=== PATIENT | female | born 2000 | race Caucasian/White ===

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

== ENCOUNTER 2019-10-15 11:09 | Inpatient (IN) | payer SELFPAY ==
[2019-10-15] MEDS ORDERED: Misoprostol 25 MCG (1/4 of 100 MCG) Tab VAG PRN (19:50)
[2019-10-15] MEDS ORDERED: Methylergonovine 0.2 MG/1 ML Amp IM PRN (19:50)
[2019-10-15] MEDS ORDERED: Sodium Chloride 0.9% 10 ML Syringe FLUSH PRN (19:50)
[2019-10-15] MEDS ORDERED: Carboprost Tromethamine 250 MCG/1 ML Amp IM PRN (19:50)
[2019-10-15] MEDS ORDERED: Butorphanol 1 MG/ML SDV IVPUSH PRN (19:50)
[2019-10-15] MEDS ORDERED: Misoprostol 200 MCG Tab PO PRN (19:50)
[2019-10-15] MEDS ORDERED: Lidocaine 1% 50 ML MDV INJECT PRN (19:50)
[2019-10-15] MEDS ORDERED: Water For Irrigation,Sterile 1,000 ML Container IRR PRN (19:50)
[2019-10-15] MEDS ORDERED: Sodium Chloride 0.9% 2.5 ML Syringe FLUSH PRN (19:50)
[2019-10-15] MEDS ORDERED: Terbutaline 1 MG/ML SDV SUBCUT PRN (19:50)
[2019-10-15] MEDS ORDERED: Tranexamic Acid 1,000 MG in Sodium Chloride 0.9% 100 ML IV PRN (19:50)
[2019-10-15] MEDS ORDERED: Ondansetron 4 MG/2 ML SDV IVPUSH PRN (19:50)
[2019-10-15] MEDS ORDERED: Sodium Chloride 0.9% 10 ML SDV IV PRN (19:50)
[2019-10-15] MEDS ORDERED: Nalbuphine 10 MG/1 ML Vial IVPUSH PRN (19:50)
[2019-10-15] MEDS ORDERED: Oxytocin/0.9 % Sodium Chloride 30 UNIT/500 ML BAG IV SCH ×2 (20:00)
[2019-10-15] MEDS: Lactated Ringers 1,000 ML IV SCH (21:25)
[2019-10-16] MEDS: Misoprostol 25 MCG (1/4 of 100 MCG) Tab VAG PRN ×3 (03:03→15:04)
[2019-10-16] MEDS: Lactated Ringers 1,000 ML IV SCH (23:00)
[2019-10-16] MEDS ORDERED: fentaNYL 100 MCG/2 ML SDV ONE (23:14)
[2019-10-16] MEDS ORDERED: Ropivacaine HCl/PF 100 ML ONE (23:14)
--- NOTE | 2019-10-16 23:35 | PCM.PREANE ---
Preanesthetic Assessment - Anesthesia/Transfusion/Family Hx Anesthesia History: Prior Anesthesia Without Reaction Family History of Anesthesia Reaction: No Transfusion History: No Prior Transfusion(s) Intubation History: Unknown - Physical Assessment NPO Status Date: 10/16/19 NPO Status Time: 20:00 Height: 1.63 m Weight: 114.305 kg ASA Class: 1 - Lab Values: Laboratory Last Values WBC 8.09 K/uL (4.0-11.0) 10/15/19 20:20 RBC 4.60 M/uL (4.30-5.90) 10/15/19 20:20 Hgb 11.8 g/dL (12.0-16.0) L 10/15/19 20:20 Hct 37.7 % (36.0-46.0) 10/15/19 20:20 MCV 82.0 fL (80.0-98.0) 10/15/19 20:20 MCH 25.7 pg (27.0-32.0) L 10/15/19 20:20 MCHC 31.3 g/dL (31.0-37.0) 10/15/19 20:20 RDW Std Deviation 69.0 fl (28.0-62.0) H 10/15/19 20:20 RDW Coeff of Sobeida 24 % (11.0-15.0) H 10/15/19 20:20 Plt Count 232 K/uL (150-400) 10/15/19 20:20 MPV 9.70 fL (7.40-12.00) 10/15/19 20:20 Nucleated RBC % 0.0 /100WBC 10/15/19 20:20 Nucleated RBCs # 0 K/uL 10/15/19 20:20 Blood Type O POSITIVE 10/15/19 20:20 Antibody Screen NEGATIVE 10/15/19 20:20 - Allergies Allergies/Adverse Reactions: Allergies Allergy/AdvReac Type Severity Reaction Status Date / Time bismuth subsalicylate Allergy Vomiting Verified 08/15/19 00:42 [From Pepto-Bismol] azithromycin [From Zithromax] AdvReac Mild Vomiting Verified 08/15/19 00:42 - Acknowledgements Anesthesia Type Planned: Epidural Pt an Appropriate Candidate for the Planned Anesthesia: Yes Alternatives and Risks of Anesthesia Discussed w Pt/Guardian: Yes Pt/Guardian Understands and Agrees with Anesthesia Plan: Yes PreAnesthesia Questionnaire - Past Health History Medical/Surgical History: Denies Medical/Surgical History HEENT History: Reports: None Cardiovascular History: Reports: None Respiratory History: Reports: None Gastrointestinal History: Reports: None Genitourinary History: Reports: None 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 Musculoskeletal History: Reports: None Neurological History: Reports: None Psychiatric History: Reports: Anxiety Endocrine/Metabolic History: Reports: None Hematologic History: Reports: None Oncologic (Cancer) History: Reports: None Dermatologic History: Reports: None - Infectious Disease History Infectious Disease History: Reports: None - Past Surgical History HEENT Surgical History: Reports: Myringotomy w Tube(s) GI Surgical History: Reports: Appendectomy - SUBSTANCE USE Smoking Status *Q: Former Smoker Tobacco Use Within Last Twelve Months: Vaping Second Hand Smoke Exposure: No Recreational Drug Use History: No - HOME MEDS Home Medications: Home Meds Multivitamin [Multi-Day Vitamins] 1 tab PO DAILY 07/01/18 [History] - CURRENT (IN HOUSE) MEDS Current Meds: Current Medications Butorphanol Tartrate (Stadol) 1 mg IVPUSH Q1H PRN PRN Reason: Pain Last Admin: 10/16/19 22:16 Dose: 1 mg Carboprost Tromethamine (Hemabate Ds) 250 mcg IM ASDIRECTED PRN PRN Reason: Post Hemorrhage Lactated Ringer's (Ringers, Lactated) 1,000 mls @ 150 mls/hr IV ASDIRECTED BRANDON Last Admin: 10/15/19 21:25 Dose: 999 mls/hr Oxytocin/Sodium Chloride (Oxytocin 30 Unit/500 Ml-Ns) 30 unit in 500 mls @ 2 mls/hr IV TITRATE BRANDON; Protocol Last Titration: 10/16/19 22:18 Dose: 4 munits/min, 4 mls/hr Oxytocin/Sodium Chloride (Oxytocin 30 Unit/500 Ml-Ns) 30 unit in 500 mls @ 555 mls/hr IV TITRATE BRANDON Tranexamic Acid 1,000 mg/ (Sodium Chloride) 110 mls @ 660 mls/hr IV ONETIME PRN PRN Reason: Bleeding Lidocaine HCl (Xylocaine 1%) 50 ml INJECT ONETIME PRN PRN Reason: Laceration repair Methylergonovine Maleate (Methergine) 0.2 mg IM ASDIRECTED PRN PRN Reason: Post Hemorrhage Misoprostol (Cytotec) 25 mcg VAG ONETIME PRN PRN Reason: Cervical Ripening Last Admin: 10/15/19 22:27 Dose: 25 mcg Misoprostol (Cytotec) 25 mcg VAG Q4H PRN PRN Reason: Cervical Ripening Last Admin: 10/16/19 15:04 Dose: 25 mcg Misoprostol (Cytotec) 200 mcg PO ONETIME PRN PRN Reason: Post Hemorrhage Nalbuphine HCl (Nubain) 10 mg IVPUSH Q1H PRN PRN Reason: Pain (severe 7-10) Ondansetron HCl (Zofran) 4 mg IVPUSH Q4H PRN PRN Reason: Nausea/Vomiting Sodium Chloride (Saline Flush) 10 ml FLUSH ASDIRECTED PRN PRN Reason: Keep Vein Open Sodium Chloride (Saline Flush) 2.5 ml FLUSH ASDIRECTED PRN PRN Reason: Keep Vein Open Sodium Chloride (Normal Saline) 10 ml IV ASDIRECTED PRN PRN Reason: IV Use Sterile Water (Sterile Water For Irrigation) 1,000 ml IRR ASDIRECTED PRN PRN Reason: delivery Terbutaline Sulfate (Brethine) 0.25 mg SUBCUT ASDIRECTED PRN PRN Reason: Tacysystole Discontinued Medications Fentanyl (Sublimaze) Confirm Administered Dose 100 mcg .ROUTE .STK-MED ONE Stop: 10/16/19 23:15 Ropivacaine (Naropin 0.2%) Confirm Administered Dose 100 mls @ as directed .ROUTE .STK-MED ONE Stop: 10/16/19 23:15
--- NOTE | 2019-10-16 23:38 | PCM.PRNOTE ---
- Free Text/Narrative Note: Anes NOte Patient requests epidural for L&D. Sitting position. Level L3-L4 midline approach. Sterile technique. Chloraprep scrub to lumbar area. Sterile fenestrated drape applied. Epidural space easily achieved single attempt using HARMONY technique. HARMONY at 4 cm. Cath threaded 5 cm with ease. Cath secured at skin at 1o cm using sterile clear adhesive dressing. 2325 Test 3 cc 1.5% lido with epi negative. 2330 Load 10 cc 0.2% ropiviciane with 1 mcg cc fentnayl in slow divided doses. 2335 Pump started wtih 90 cc same solution. Rate is 8 cc hr with 6 cc q 20 min prn bolus. Triston well. Time with patient [id number] Adonis Ba CRNA
[2019-10-17] MEDS ORDERED: Lidocaine 2% with EPINEPHrine 1:100,000 20 ML MDV ONE (04:44)
[2019-10-17] MEDS ORDERED: fentaNYL 100 MCG/2 ML SDV ONE ×2 (04:44→11:02)
--- NOTE | 2019-10-17 04:49 | PCM.PRNOTE ---
- Free Text/Narrative Note: Anes NOte Patient reports increased discomfort in perineal area. A sitting dose of 1100 mcg fentanyl and 7 cc 2% lido with epi was injected. Time with patient [id number] Adonis Ba [employer]
[2019-10-17] MEDS ORDERED: Bupivicaine/fentaNYL/NS 250 ML ONE (07:55)
[2019-10-17] MEDS ORDERED: Bupivacaine 0.5% 10 ML SDV ONE ×2 (08:22→09:35)
[2019-10-17] MEDS ORDERED: Lidocaine 2% 5 ML SDV ONE (08:23)
[2019-10-17] MEDS: Lactated Ringers 1,000 ML IV SCH ×3 (09:00→20:24)
[2019-10-17] MEDS ORDERED: Sodium Chloride 0.9% 20 ML ONE (09:52)
[2019-10-17] MEDS ORDERED: ceFAZolin 1 GM Vial ONE (09:52)
[2019-10-17] MEDS ORDERED: Ondansetron 4 MG/2 ML SDV ONE (09:54)
[2019-10-17] MEDS ORDERED: Oxytocin 10 Units/1 ML SDV ONE (09:54)
[2019-10-17] MEDS ORDERED: Propofol 200 MG/20 ML SDV ONE (09:56)
[2019-10-17] MEDS ORDERED: Succinylcholine/Sod PF 100 MG/5 ML SYRINGE IV ONE (09:56)
[2019-10-17] MEDS ORDERED: Rocuronium 100 MG/10 ML Syringe ONE (09:56)
[2019-10-17] MEDS ORDERED: Midazolam 1 MG/ML 2 ML SDV ONE (10:03)
[2019-10-17] MEDS ORDERED: fentaNYL 250 MCG/5 ML SDV ONE (10:03)
[2019-10-17] MEDS ORDERED: Morphine PF 10 MG/10 ML SDV ONE (10:28)
[2019-10-17] MEDS ORDERED: Naloxone 0.4 MG/ML Syringe IVPUSH PRN (10:42)
[2019-10-17] MEDS ORDERED: diphenhydrAMINE 50 MG/ML SDV IVPUSH PRN ×2 (10:42→11:09)
[2019-10-17] MEDS ORDERED: Nalbuphine 10 MG/1 ML Vial IVPUSH PRN (10:42)
[2019-10-17] MEDS ORDERED: Tranexamic Acid 1,000 MG in Sodium Chloride 0.9% 100 ML IV PRN (11:09)
[2019-10-17] MEDS ORDERED: Methylergonovine 0.2 MG/1 ML Amp IM PRN (11:09)
[2019-10-17] MEDS ORDERED: Bisacodyl 10 MG Supp RECTAL PRN (11:09)
[2019-10-17] MEDS ORDERED: Oxytocin 10 Units/1 ML SDV IM PRN (11:09)
[2019-10-17] MEDS ORDERED: Measles, Mumps & Rubella Vaccine 0.5 ML SDV SUBCUT ONE (11:09)
[2019-10-17] MEDS ORDERED: Lanolin 100% Cream 7 GM Tube TOP PRN (11:09)
[2019-10-17] MEDS ORDERED: Misoprostol 200 MCG Tab RECTAL PRN (11:09)
[2019-10-17] MEDS ORDERED: Acetaminophen/oxyCODONE 325-5 MG Tab PO PRN (11:09)
[2019-10-17] MEDS ORDERED: Ondansetron 4 MG/2 ML SDV IVPUSH PRN (11:09)
[2019-10-17] MEDS ORDERED: fentaNYL 100 MCG/2 ML SDV IVPUSH PRN (11:25)
[2019-10-17] MEDS ORDERED: HYDROmorphone 2 MG/ML Syringe IVPUSH PRN (11:26)
[2019-10-17] MEDS ORDERED: Ketorolac 30 MG/ML SDV ONE (11:30)
[2019-10-17] MEDS: Ketorolac 30 MG/ML SDV IVPUSH SCH ×3 (11:32→23:16)
--- NOTE | 2019-10-17 13:09 | PCM.POSTAN ---
POST ANESTHESIA ASSESSMENT - MENTAL STATUS Mental Status: Alert, Oriented - VITAL SIGNS Vital Signs: Last Vital Signs Temp 36.1 C 10/17/19 11:15 Pulse 70 10/17/19 12:05 Resp 16 10/17/19 12:05 BP 124/66 10/17/19 12:05 Pulse Ox 97 10/17/19 12:05 - RESPIRATORY Respiratory Status: Respiratory Rate WNL, Airway Patent, O2 Saturation Stable - CARDIOVASCULAR CV Status: Pulse Rate WNL, Blood Pressure Stable - GASTROINTESTINAL GI Status: No Symptoms - PAIN Pain Score: 0 - POST OP HYDRATION Hydration Status: Adequate & Stable - OBSERVATIONS Free Text/Narrative:: No anesthesia problems
[2019-10-17] MEDS: Docusate Sodium 100 MG Cap PO SCH (20:23)
[2019-10-18] MEDS: Lactated Ringers 1,000 ML IV SCH (04:56)
[2019-10-18] MEDS: Ketorolac 30 MG/ML SDV IVPUSH SCH ×2 (04:57→11:21)
--- NOTE | 2019-10-18 08:31 | PCM.OPNOTE ---
- General Post-Op/Procedure Note Date of Surgery/Procedure: 10/17/19 Operative Procedure(s): primary low transverse Findings: Viable female , and weight pending. Normal appearing uterus and fallopian tubes. Pre Op Diagnosis: Arrest of labor, nonreassuring heart rate Anesthesia Technique: Epidural, General ET Tube Primary Surgeon: Dustin Harrell Anesthesia Provider: Seamus Raphael Supervisor [employer]: Justa Hall Pathology: Placenta Output, Urine Amount: 125 EBL in mLs: 800 Complications: None Condition: Good Free Text/Narrative:: Intake & Output 10/17/19 10/18/19 10/18/19 22:59 06:59 14:59 Output Total 222 360 Balance -222 -360
--- NOTE | 2019-10-18 08:34 | PCM.PNPP ---
- General Info Date of Service: 10/18/19 Functional Status: Reports: Pain Controlled, Tolerating Diet - Review of Systems General: Reports: No Symptoms HEENT: Reports: No Symptoms Pulmonary: Reports: No Symptoms Cardiovascular: Reports: No Symptoms Gastrointestinal: Reports: No Symptoms Genitourinary: Reports: No Symptoms Musculoskeletal: Reports: No Symptoms Skin: Reports: No Symptoms Neurological: Reports: No Symptoms Psychiatric: Reports: No Symptoms - Patient Data Vital Signs - Most Recent: Last Vital Signs Temp 36.2 C 10/18/19 04:52 Pulse 87 10/18/19 07:00 Resp 15 10/18/19 07:00 BP 120/64 10/18/19 04:52 Pulse Ox 94 L 10/18/19 07:00 Weight - Most Recent: 114.305 kg I&O - Last 24 Hours: Intake & Output 10/17/19 10/18/19 10/18/19 22:59 06:59 14:59 Output Total 222 360 125 Balance -222 -360 -125 Lab Results - Last 24 Hours: Laboratory Results - last 24 hr 10/17/19 10/17/19 10/18/19 Range/Units 10:16 10:16 05:12 Hgb 10.2 L (12.0-16.0) g/dL Hct 32.8 L (36.0-46.0) % Cord ABG pH 7.309 (7.18-7.38) Cord ABG Base Excess -3 (-10--2) Cord VBG pH 7.308 (7.25-7.45) Cord VBG Base Excess -5 (-10--2) Med Orders - Current: Current Medications Bisacodyl (Dulcolax) 10 mg RECTAL ONETIME PRN PRN Reason: Constipation Butorphanol Tartrate (Stadol) 1 mg IVPUSH Q1H PRN PRN Reason: Pain Last Admin: 10/16/19 22:16 Dose: 1 mg Carboprost Tromethamine (Hemabate Ds) 250 mcg IM ASDIRECTED PRN PRN Reason: Post Hemorrhage Diphenhydramine HCl (Benadryl) 25 mg IVPUSH Q4H PRN PRN Reason: Itching Stop: 10/18/19 10:42 Diphenhydramine HCl (Benadryl) 25 mg IVPUSH Q6H PRN PRN Reason: Itching or Nausea Docusate Sodium (Colace) 100 mg PO BID [facility] Last Admin: 10/17/19 20:23 Dose: 100 mg Emollient Ointment (Lansinoh Hpa) 0 gm TOP ASDIRECTED PRN PRN Reason: Sore Nipples Fentanyl (Sublimaze) 50 - 100 mcg IVPUSH Q5M PRN PRN Reason: Pain (severe 7-10) Hydromorphone HCl (Dilaudid) 1 - 2 mg IVPUSH ONETIME PRN PRN Reason: Pain Last Admin: 10/17/19 11:35 Dose: 2 mg Lactated Ringer's (Ringers, Lactated) 1,000 mls @ 150 mls/hr IV ASDIRECTED [facility] Last Admin: 10/17/19 09:00 Dose: 500 mls/hr Oxytocin/Sodium Chloride (Oxytocin 30 Unit/500 Ml-Ns) 30 unit in 500 mls @ 2 mls/hr IV TITRATE [facility]; Protocol Last Titration: 10/17/19 01:00 Dose: 12 munits/min, 12 mls/hr Oxytocin/Sodium Chloride (Oxytocin 30 Unit/500 Ml-Ns) 30 unit in 500 mls @ 555 mls/hr IV TITRATE [facility] Tranexamic Acid 1,000 mg/ (Sodium Chloride) 110 mls @ 660 mls/hr IV ONETIME PRN PRN Reason: Bleeding Tranexamic Acid 1,000 mg/ (Sodium Chloride) 110 mls @ 660 mls/hr IV ONETIME PRN PRN Reason: Bleeding Lactated Ringer's (Ringers, Lactated) 1,000 mls @ 125 mls/hr IV ASDIRECTED [facility] Last Admin: 10/18/19 04:56 Dose: 125 mls/hr Ibuprofen (Motrin) 800 mg PO Q8H PRN PRN Reason: mild pain or fever Ketorolac Tromethamine (Toradol) 30 mg IVPUSH Q6H [facility] Stop: 10/18/19 11:16 Last Admin: 10/18/19 04:57 Dose: 30 mg Lidocaine HCl (Xylocaine 1%) 50 ml INJECT ONETIME PRN PRN Reason: Laceration repair Methylergonovine Maleate (Methergine) 0.2 mg IM ASDIRECTED PRN PRN Reason: Post Hemorrhage Methylergonovine Maleate (Methergine) 0.2 mg IM ONETIME PRN PRN Reason: Excessive Vaginal Bleeding Misoprostol (Cytotec) 25 mcg VAG ONETIME PRN PRN Reason: Cervical Ripening Last Admin: 10/15/19 22:27 Dose: 25 mcg Misoprostol (Cytotec) 25 mcg VAG Q4H PRN PRN Reason: Cervical Ripening Last Admin: 10/16/19 15:04 Dose: 25 mcg Misoprostol (Cytotec) 200 mcg PO ONETIME PRN PRN Reason: Post Hemorrhage Misoprostol (Cytotec) 1,000 mcg RECTAL ONETIME PRN PRN Reason: excessive bleeding Nalbuphine HCl (Nubain) 10 mg IVPUSH Q1H PRN PRN Reason: Pain (severe 7-10) Nalbuphine HCl (Nubain) 5 mg IVPUSH Q3H PRN PRN Reason: Pruritis Stop: 10/18/19 10:42 Naloxone HCl (Narcan) 0.1 mg IVPUSH ONETIME PRN PRN Reason: Respiratory Depression Stop: 10/18/19 10:42 Ondansetron HCl (Zofran) 4 mg IVPUSH Q4H PRN PRN Reason: Nausea/Vomiting Ondansetron HCl (Zofran) 4 mg IVPUSH Q4H PRN PRN Reason: Nausea/Vomiting Oxycodone/Acetaminophen (Percocet 325-5 Mg) 1 tab PO Q4H PRN PRN Reason: Pain (moderate 4-6) Oxycodone/Acetaminophen (Percocet 325-5 Mg) 2 tab PO Q4H PRN PRN Reason: Pain (moderate 4-6) Oxytocin (Pitocin) 10 unit IM ASDIRECTED PRN PRN Reason: Excessive Vaginal Bleeding Sodium Chloride (Saline Flush) 10 ml FLUSH ASDIRECTED PRN PRN Reason: Keep Vein Open Sodium Chloride (Saline Flush) 2.5 ml FLUSH ASDIRECTED PRN PRN Reason: Keep Vein Open Sodium Chloride (Normal Saline) 10 ml IV ASDIRECTED PRN PRN Reason: IV Use Sterile Water (Sterile Water For Irrigation) 1,000 ml IRR ASDIRECTED PRN PRN Reason: delivery Terbutaline Sulfate (Brethine) 0.25 mg SUBCUT ASDIRECTED PRN PRN Reason: Tacysystole Discontinued Medications Bupivacaine HCl (Sensorcaine-Mpf 0.5%) Confirm Administered Dose 10 ml .ROUTE .[facility]-MED ONE Stop: 10/17/19 08:23 Bupivacaine HCl (Sensorcaine-Mpf 0.5%) Confirm Administered Dose 20 ml .ROUTE .[facility]-MED ONE Stop: 10/17/19 09:36 Cefazolin Sodium (Ancef) Confirm Administered Dose 2 gm .ROUTE .[facility]-MED ONE Stop: 10/17/19 09:53 Fentanyl (Sublimaze) Confirm Administered Dose 100 mcg .ROUTE .[facility]-MED ONE Stop: 10/16/19 23:15 Fentanyl (Sublimaze) Confirm Administered Dose 100 mcg .ROUTE .[facility]-MED ONE Stop: 10/17/19 04:45 Fentanyl (Sublimaze) Confirm Administered Dose 250 mcg .ROUTE .[facility]-MED ONE Stop: 10/17/19 10:04 Fentanyl (Sublimaze) Confirm Administered Dose 100 mcg .ROUTE .[facility]-MED ONE Stop: 10/17/19 11:03 Ropivacaine (Naropin 0.2%) Confirm Administered Dose 100 mls @ as directed .ROUTE .[facility]-MED ONE Stop: 10/16/19 23:15 Fentanyl/Bupivacaine HCl (Fentanyl/Bupivacaine/Ns 2 Mcg-0.125% 250 Ml) Confirm Administered Dose 250 mls @ as directed .ROUTE .[facility]-MED ONE Stop: 10/17/19 07:56 Sodium Chloride (Normal Saline) Confirm Administered Dose 20 mls @ as directed .ROUTE .[facility]-MED ONE Stop: 10/17/19 09:53 Ketorolac Tromethamine (Toradol) Confirm Administered Dose 30 mg .ROUTE .[facility]- MED ONE Stop: 10/17/19 11:31 Lidocaine (Xylocaine-Mpf 2%) Confirm Administered Dose 5 ml .ROUTE .[facility]-MED ONE Stop: 10/17/19 08:24 Lidocaine/Epinephrine (Xylocaine 2% With Epinephrine 1:100,000) 20 ml .XX .[facility]- MED ONE Stop: 10/17/19 04:45 Measles/Mumps/Rubella Vaccine Live (M-M-R Ii Vaccine) 0.5 ml SUBCUT .ONCE ONE Stop: 10/17/19 11:10 Midazolam HCl (Versed 1 Mg/Ml) Confirm Administered Dose 2 mg .ROUTE .[facility]-MED ONE Stop: 10/17/19 10:04 Morphine Sulfate (Duramorph Pf) Confirm Administered Dose 10 mg .ROUTE .[facility]-MED ONE Stop: 10/17/19 10:29 Ondansetron HCl (Zofran) Confirm Administered Dose 4 mg .ROUTE .[facility]-MED ONE Stop: 10/17/19 09:55 Oxytocin (Pitocin) Confirm Administered Dose 30 unit .ROUTE .STK-MED ONE Stop: 10/17/19 09:55 Propofol (Diprivan 20 Ml) Confirm Administered Dose 200 mg .ROUTE .STK-MED ONE Stop: 10/17/19 09:57 Rocuronium Deloit (Zemuron) Confirm Administered Dose 100 mg .ROUTE .STK-MED ONE Stop: 10/17/19 09:57 - Interaction Disposition, : in Room with Family Interaction: Holding Infant Feeding: Breastfed Infant; Nursed Well Support Person: Significant Other - Recovery Exam Fundal Tone: Firm Fundal Level: At Umbilicus Fundal Placement: Midline Lochia Amount: Scant Lochia Color: Rubra/Red Bladder Status: Indwelling Catheter in Place Urinary Elimination: Indwelling Catheter - Exam General: Alert, Oriented Neck: Supple Lungs: Normal Respiratory Effort Cardiovascular: Regular Rate, Regular Rhythm GI/Abdominal Exam: Soft, Non-Tender, No Distention Extremities: Non-Tender Skin: Warm, Dry, Intact Wound/Incisions: Dressing Dry and Intact Neurological: No New Focal Deficit Psy/Mental Status: Alert, Normal Affect, Normal Mood - Problem List & Annotations (1) S/P primary low transverse SNOMED Code(s): 204437415, [id number], [id number], 134049035, 001948151 Code(s): Z98.891 - HISTORY OF UTERINE SCAR FROM PREVIOUS SURGERY Status: Acute Current Visit: Yes - Problem List Review Problem List Initiated/Reviewed/Updated: Yes - Assessment Assessment:: 19yo P1 s/p 1LTCS for non-reassuring heart tones, POD#1 - Plan Plan:: 1. D/C metzger, saline lock IV 2. Encourage ambulation 3. Dispo - likely discharge home POD#2
--- NOTE | 2019-10-18 08:49 | PCM48HPAN ---
Post Anesthesia Note - EVALUATION WITHIN 48HRS OF ANESTHETIC Vital Signs in Normal Range: Yes Patient Participated in Evaluation: Yes Respiratory Function Stable: Yes Airway Patent: Yes Cardiovascular Function Stable: Yes Hydration Status Stable: Yes Pain Control Satisfactory: Yes Nausea and Vomiting Control Satisfactory: Yes Mental Status Recovered: Yes Vital Signs: Last Vital Signs Temp 36.6 C 10/18/19 08:00 Pulse 87 10/18/19 08:00 Resp 16 10/18/19 08:00 BP 121/77 10/18/19 08:00 Pulse Ox 95 10/18/19 08:00
--- NOTE | 2019-10-18 09:37 | OR ---
SURGEON: Dustin Harrell MD DATE OF PROCEDURE: 10/17/2019 INDICATIONS: 19-year-old, G1, P0, at 41 weeks and 0 days, admitted for late term induction of labor. She had otherwise uncomplicated . She received Cytotec and Pitocin and progressed to 6 cm, then had arrest of dilation for 5 hours. She also started having category 2 tracing with minimal variability and prolonged decelerations. Discussed with the patient that with arrest of labor and nonreassuring tracing, would recommend proceeding with section. She was agreeable. The procedure was discussed with the patient, risks and complications including bleeding, infection, DVTs, injury to surrounding organs including bladder, bowel, and ureters. She expressed understanding. Consent was signed. PREOPERATIVE DIAGNOSIS: 1. Tony intrauterine at 41 weeks and 0. 2. Arrest of dilation 3. Nonreassuring tracing POSTOPERATIVE DIAGNOSIS: 1. Tony intrauterine at 41 weeks and 0. 2. Arrest of dilation 3. Nonreassuring tracing PROCEDURE PERFORMED: Primary low transverse section. ANESTHESIA: Epidural converted to general anesthesia. ANESTHESIOLOGIST: Dr. Seamus Raphael. ESTIMATED BLOOD LOSS: 800 mL. FINDINGS: A viable female infant. score of 8 and 9. Weight of 9lbs 6oz. Fetus in direct occiput posterior position. DESCRIPTION OF PROCEDURE: She was brought to the operating room. She received 2 g Ancef IV and pneumatic stockings. Epidural anesthesia was in place. A Mayes catheter was in place. The abdomen was prepped with chlorhexidine and the vagina was prepped with Betadine in sterile fashion. She was draped and tested for anesthesia, she reported mild sensation but wanted to continue with epidural. A Pfannenstiel incision was made with a scalpel and dissected down to fascia. Multiple sites of bleeding were noted and cauterized. The fascia was cleared of subcutaneous tissue. At this point, the patient requested to be under general anesthesia due to pain and anxiety, so general anesthesia was applied. Goyo clamps were then placed on the superior fascial edge. Rectus muscles were by blunt dissection and using Hall scissors. The same process was repeated for the inferior fascial edge. The peritoneum was identified, at midline with Hall scissors and extended bluntly. The Jimbo O retractor was placed in the abdomen. The bladder flap was made by gentle dissection of the vesicouterine peritoneum with Metzenbaum scissors and the bladder pushed below the lower uterine segment. The uterus was then incised transversely at the lower uterine segment using a scalpel and extended bluntly. Clear amniotic fluid was noted. The infant's head was noted to be in direct occiput posterior position. It was elevated atraumatically through the hysterotomy and with fundal pressure. The shoulders and body were delivered without difficulty. The umbilical cord was clamped and cut after 60 seconds and no longer pulsating. The baby was pink, crying, and moving all extremities and handed over to the nursery staff. The cord gases were obtained. The placenta was delivered with gentle traction on the umbilical cord. The uterine cavity was cleaned with a lap and all remaining membranes removed. Allis clamps were used to grasp the angle and lower edges of the incision. The uterine incision was closed in 2 layers, the first layer with running locking suture using 0 Monocryl, the second layer with imbricated vertical running fashion with 0 Vicryl. The uterus was firm and incision was hemostatic. The paracolic gutters were cleaned of any clots. The incision was irrigated, and hemostasis confirmed. The peritoneum was then grasped by hemostats and closed using 2-0 Vicryl in running fashion. The rectus muscle was examined and found to be hemostatic. The fascia was closed using two 0 Vicryl sutures in a running fashion. The subcutaneous was irrigated and bleeding areas cauterized. The subcutaneous layer was brought together with 2-0 plain. The skin was closed in a subcuticular fashion using 3-0 Monocryl on a Ricardo needle. Telfa and ABD dressing were placed over the incision. The patient was stable and transferred to recovery room without complications. FLAVIO RAIN /[id number] BLAKE
--- NOTE | 2019-10-18 09:55 | OR ---
SURGEON: Dustin Harrell MD DATE OF PROCEDURE: 10/17/2019 INDICATION FOR PROCEDURE: A 19-year-old G1, P0, at 41 weeks and 1 day, admitted for induction of labor at late term. She received Cytotec and Pitocin. She had otherwise uncomplicated . She progressed to 6 cm dilated, then did not make any further cervical change for about 5 hours. She also started to have prolonged decels to the 90s, lasting 4 to 5 minutes. She received an epidural, but did not have good pain relief. After discussing with the patient that she had arrest of labor and with nonreassuring heart rate, would recommend proceeding with primary section. She was agreeable. Questions answered and consent was signed. PREOPERATIVE DIAGNOSIS: Tony intrauterine at 41 weeks and 1 day. POSTOPERATIVE DIAGNOSIS: Tony intrauterine at 41 weeks and 1 day. PROCEDURE: Primary low-transverse section. ANESTHESIOLOGIST: Dr. Seamus Raphael ANESTHESIA: Epidural converted to general anesthesia. ESTIMATED BLOOD LOSS: 800 mL. FINDINGS: Viable female , scores of 8 and 9, and weight of 9 pounds and 6 ounces. DESCRIPTION OF THE PROCEDURE: The procedure was discussed with the patient. Risks including bleeding, infection, injury to surrounding organs including bladder, bowel, ureter, and DVTs were discussed with the patient. She expressed understanding and consent was signed. She was brought to the operating room. She received 2 g Ancef IV and pneumatic stockings. Epidural anesthesia was already in place and Mayes catheter was already in place. The abdomen was prepped with chlorhexidine and vagina with Betadine in sterile fashion. She was draped and tested for anesthesia. She noted a mild sensation with the epidural, but desired to continue. Pfannenstiel incision was made with a scalpel and dissected down to fascia. Multiple sites of bleeding were noted and cauterized. The fascia was cleared of subcutaneous tissue. At this point, the patient reported that she was feeling some pain and would prefer to go under general anesthesia. General anesthesia was applied without difficulty. The fascia was incised in the midline and extended laterally with curved Hall scissors. Goyo clamps were placed on the superior fascial edge. The rectus muscles were by blunt dissection and using Hall scissors. The same process was repeated for the inferior fascial edge. The peritoneum was identified and dissected with hemostats. An opening was made bluntly and in the midline with Metzenbaum scissors, then extended bluntly. The Jimbo O retractor was placed in the peritoneal cavity. The bladder flap was made by gentle dissection of the vesicouterine peritoneum and pushed below the site of incision. The uterus was incised transversely at the lower uterine segment with a scalpel and extended bluntly. Clear amniotic fluid was noted. The infant's head was delivered atraumatically by elevating the head through the hysterotomy and with fundal pressure. The shoulder and body were delivered without difficulty. The umbilical cord was clamped and cut after 60 seconds and no longer pulsating. The baby was pink and crying and moving all extremities, and handed off to nursery staff. The cord gases were obtained. The placenta was delivered with gentle traction on the umbilical cord. A clean lap was used to remove all remaining membranes from the uterus. Allis clamps were used to grasp the angles and lower edges of the incision. The uterine incision was closed in 2 layers, the 1st layer with running locking suture using 0 Monocryl, the 2nd layer in vertical imbricated fashion with 0 Vicryl. The uterus was firm, and pericolic gutters were cleared of any clots. The incision was irrigated and checked for hemostasis. The peritoneum was grasped by hemostats and closed with 0 Vicryl in running fashion. The rectus muscles were examined and noted to be hemostatic. The fascia was closed using 2-0 Vicryl sutures in running fashion. The subcutaneous tissue was irrigated and bleeding areas cauterized. The subcutaneous layer was brought together with 2-0 plain suture. The skin was closed in subcuticular fashion using 3-0 Monocryl on a Ricardo needle. Telfa and ABD pressure dressing were placed over the incision. The patient was awoken from anesthesia in stable condition and transferred to recovery room. Postoperative care instruction was reviewed with the patient. FLAVIO RAIN /[id number]
[2019-10-18] MEDS: Acetaminophen/oxyCODONE 325-5 MG Tab PO PRN (16:48)
[2019-10-19] MEDS: Ibuprofen 800 MG Tab PO PRN ×2 (01:12→12:39)
[2019-10-19] MEDS: Acetaminophen/oxyCODONE 325-5 MG Tab PO PRN ×2 (01:13→07:32)
[2019-10-19] MEDS: Docusate Sodium 100 MG Cap PO SCH (07:32)
--- NOTE | 2019-10-19 08:38 | PCM.PNPP ---
- General Info Date of Service: 10/19/19 Functional Status: Reports: Pain Controlled, Tolerating Diet, Ambulating, Urinating - Review of Systems General: Reports: No Symptoms HEENT: Reports: No Symptoms Pulmonary: Reports: No Symptoms Cardiovascular: Reports: No Symptoms Gastrointestinal: Reports: No Symptoms Genitourinary: Reports: No Symptoms Musculoskeletal: Reports: No Symptoms Skin: Reports: No Symptoms Neurological: Reports: No Symptoms Psychiatric: Reports: No Symptoms - Patient Data Vital Signs - Most Recent: Last Vital Signs Temp 36.2 C 10/19/19 07:56 Pulse 79 10/19/19 07:56 Resp 16 10/19/19 07:56 BP 119/65 10/19/19 07:56 Pulse Ox 99 10/19/19 07:56 Weight - Most Recent: 114.305 kg Med Orders - Current: Current Medications Bisacodyl (Dulcolax) 10 mg RECTAL ONETIME PRN PRN Reason: Constipation Butorphanol Tartrate (Stadol) 1 mg IVPUSH Q1H PRN PRN Reason: Pain Last Admin: 10/16/19 22:16 Dose: 1 mg Carboprost Tromethamine (Hemabate Ds) 250 mcg IM ASDIRECTED PRN PRN Reason: Post Hemorrhage Diphenhydramine HCl (Benadryl) 25 mg IVPUSH Q6H PRN PRN Reason: Itching or Nausea Docusate Sodium (Colace) 100 mg PO BID [facility] Last Admin: 10/17/19 20:23 Dose: 100 mg Emollient Ointment (Lansinoh Hpa) 0 gm TOP ASDIRECTED PRN PRN Reason: Sore Nipples Last Admin: 10/19/19 01:12 Dose: 7 gm Fentanyl (Sublimaze) 50 - 100 mcg IVPUSH Q5M PRN PRN Reason: Pain (severe 7-10) Hydromorphone HCl (Dilaudid) 1 - 2 mg IVPUSH ONETIME PRN PRN Reason: Pain Last Admin: 10/17/19 11:35 Dose: 2 mg Lactated Ringer's (Ringers, Lactated) 1,000 mls @ 150 mls/hr IV ASDIRECTED BRANDON Last Admin: 10/17/19 09:00 Dose: 500 mls/hr Oxytocin/Sodium Chloride (Oxytocin 30 Unit/500 Ml-Ns) 30 unit in 500 mls @ 2 mls/hr IV TITRATE BRANDON; Protocol Last Titration: 10/17/19 01:00 Dose: 12 munits/min, 12 mls/hr Oxytocin/Sodium Chloride (Oxytocin 30 Unit/500 Ml-Ns) 30 unit in 500 mls @ 555 mls/hr IV TITRATE BRANDON Tranexamic Acid 1,000 mg/ (Sodium Chloride) 110 mls @ 660 mls/hr IV ONETIME PRN PRN Reason: Bleeding Tranexamic Acid 1,000 mg/ (Sodium Chloride) 110 mls @ 660 mls/hr IV ONETIME PRN PRN Reason: Bleeding Lactated Ringer's (Ringers, Lactated) 1,000 mls @ 125 mls/hr IV ASDIRECTED BRANDON Last Admin: 10/18/19 04:56 Dose: 125 mls/hr Ibuprofen (Motrin) 800 mg PO Q8H PRN PRN Reason: mild pain or fever Last Admin: 10/19/19 01:12 Dose: 800 mg Lidocaine HCl (Xylocaine 1%) 50 ml INJECT ONETIME PRN PRN Reason: Laceration repair Methylergonovine Maleate (Methergine) 0.2 mg IM ASDIRECTED PRN PRN Reason: Post Hemorrhage Methylergonovine Maleate (Methergine) 0.2 mg IM ONETIME PRN PRN Reason: Excessive Vaginal Bleeding Misoprostol (Cytotec) 25 mcg VAG ONETIME PRN PRN Reason: Cervical Ripening Last Admin: 10/15/19 22:27 Dose: 25 mcg Misoprostol (Cytotec) 25 mcg VAG Q4H PRN PRN Reason: Cervical Ripening Last Admin: 10/16/19 15:04 Dose: 25 mcg Misoprostol (Cytotec) 200 mcg PO ONETIME PRN PRN Reason: Post Hemorrhage Misoprostol (Cytotec) 1,000 mcg RECTAL ONETIME PRN PRN Reason: excessive bleeding Nalbuphine HCl (Nubain) 10 mg IVPUSH Q1H PRN PRN Reason: Pain (severe 7-10) Ondansetron HCl (Zofran) 4 mg IVPUSH Q4H PRN PRN Reason: Nausea/Vomiting Ondansetron HCl (Zofran) 4 mg IVPUSH Q4H PRN PRN Reason: Nausea/Vomiting Oxycodone/Acetaminophen (Percocet 325-5 Mg) 1 tab PO Q4H PRN PRN Reason: Pain (moderate 4-6) Oxycodone/Acetaminophen (Percocet 325-5 Mg) 2 tab PO Q4H PRN PRN Reason: Pain (moderate 4-6) Last Admin: 10/19/19 07:32 Dose: 2 tab Oxytocin (Pitocin) 10 unit IM ASDIRECTED PRN PRN Reason: Excessive Vaginal Bleeding Sodium Chloride (Saline Flush) 10 ml FLUSH ASDIRECTED PRN PRN Reason: Keep Vein Open Sodium Chloride (Saline Flush) 2.5 ml FLUSH ASDIRECTED PRN PRN Reason: Keep Vein Open Sodium Chloride (Normal Saline) 10 ml IV ASDIRECTED PRN PRN Reason: IV Use Sterile Water (Sterile Water For Irrigation) 1,000 ml IRR ASDIRECTED PRN PRN Reason: delivery Terbutaline Sulfate (Brethine) 0.25 mg SUBCUT ASDIRECTED PRN PRN Reason: Tacysystole Discontinued Medications Bupivacaine HCl (Sensorcaine-Mpf 0.5%) Confirm Administered Dose 10 ml .ROUTE .STK-MED ONE Stop: 10/17/19 08:23 Bupivacaine HCl (Sensorcaine-Mpf 0.5%) Confirm Administered Dose 20 ml .ROUTE .STK-MED ONE Stop: 10/17/19 09:36 Cefazolin Sodium (Ancef) Confirm Administered Dose 2 gm .ROUTE .STK-MED ONE Stop: 10/17/19 09:53 Diphenhydramine HCl (Benadryl) 25 mg IVPUSH Q4H PRN PRN Reason: Itching Stop: 10/18/19 10:42 Fentanyl (Sublimaze) Confirm Administered Dose 100 mcg .ROUTE .STK-MED ONE Stop: 10/16/19 23:15 Fentanyl (Sublimaze) Confirm Administered Dose 100 mcg .ROUTE .STK-MED ONE Stop: 10/17/19 04:45 Fentanyl (Sublimaze) Confirm Administered Dose 250 mcg .ROUTE .STK-MED ONE Stop: 10/17/19 10:04 Fentanyl (Sublimaze) Confirm Administered Dose 100 mcg .ROUTE .STK-MED ONE Stop: 10/17/19 11:03 Ropivacaine (Naropin 0.2%) Confirm Administered Dose 100 mls @ as directed .ROUTE .STK-MED ONE Stop: 10/16/19 23:15 Fentanyl/Bupivacaine HCl (Fentanyl/Bupivacaine/Ns 2 Mcg-0.125% 250 Ml) Confirm Administered Dose 250 mls @ as directed .ROUTE .STK-MED ONE Stop: 10/17/19 07:56 Sodium Chloride (Normal Saline) Confirm Administered Dose 20 mls @ as directed .ROUTE .STK-MED ONE Stop: 10/17/19 09:53 Ketorolac Tromethamine (Toradol) 30 mg IVPUSH Q6H BRANDON Stop: 10/18/19 11:16 Last Admin: 10/18/19 11:21 Dose: 30 mg Ketorolac Tromethamine (Toradol) Confirm Administered Dose 30 mg .ROUTE .STK- MED ONE Stop: 10/17/19 11:31 Lidocaine (Xylocaine-Mpf 2%) Confirm Administered Dose 5 ml .ROUTE .STK-MED ONE Stop: 10/17/19 08:24 Lidocaine/Epinephrine (Xylocaine 2% With Epinephrine 1:100,000) 20 ml .XX .STK- MED ONE Stop: 10/17/19 04:45 Measles/Mumps/Rubella Vaccine Live (M-M-R Ii Vaccine) 0.5 ml SUBCUT .ONCE ONE Stop: 10/17/19 11:10 Midazolam HCl (Versed 1 Mg/Ml) Confirm Administered Dose 2 mg .ROUTE .STK-MED ONE Stop: 10/17/19 10:04 Morphine Sulfate (Duramorph Pf) Confirm Administered Dose 10 mg .ROUTE .STK-MED ONE Stop: 10/17/19 10:29 Nalbuphine HCl (Nubain) 5 mg IVPUSH Q3H PRN PRN Reason: Pruritis Stop: 10/18/19 10:42 Naloxone HCl (Narcan) 0.1 mg IVPUSH ONETIME PRN PRN Reason: Respiratory Depression Stop: 10/18/19 10:42 Ondansetron HCl (Zofran) Confirm Administered Dose 4 mg .ROUTE .STK-MED ONE Stop: 10/17/19 09:55 Oxytocin (Pitocin) Confirm Administered Dose 30 unit .ROUTE .STK-MED ONE Stop: 10/17/19 09:55 Propofol (Diprivan 20 Ml) Confirm Administered Dose 200 mg .ROUTE .STK-MED ONE Stop: 10/17/19 09:57 Rocuronium Bannister (Zemuron) Confirm Administered Dose 100 mg .ROUTE .ClinicalBox-MED ONE Stop: 10/17/19 09:57 - Infant Interaction Infant Disposition, : [place] in Room with Family Interaction: Holding Feeding: Bottle Fed Infant, Breastfed Infant; Nursed Well, Continues to Breastfeed Support Person: Significant Other - Recovery Exam Fundal Tone: Firm Fundal Level: 1 Fingerbreadths Below Umbilicus Fundal Placement: Midline Lochia Amount: Small Lochia Color: Rubra/Red Bladder Status: Voiding Urinary Elimination: Voided - Exam General: Alert, Oriented Neck: Supple Lungs: Normal Respiratory Effort Cardiovascular: Regular Rate, Regular Rhythm GI/Abdominal Exam: Soft, Non-Tender, No Distention Extremities: Non-Tender Skin: Warm, Dry, Intact Wound/Incisions: Healing Well Neurological: No New Focal Deficit Psy/Mental Status: Alert, Normal Affect, Normal Mood - Problem List & Annotations (1) S/P primary low transverse SNOMED Code(s): 518796942, [id number], 715108232, [id number], [id number] Code(s): Z98.891 - HISTORY OF UTERINE SCAR FROM PREVIOUS SURGERY Status: Acute Current Visit: Yes - Problem List Review Problem List Initiated/Reviewed/Updated: Yes - My Orders Last 24 Hours: My Active Orders 10/19/19 08:36 Ready for Discharge [RC] PER UNIT ROUTINE - Assessment Assessment:: 19yo P1 s/p 1LTCS for non-reassuring heart tones, POD#2 - Plan Plan:: Patient desires discharge home today, reviewed discharge instructions & warning signs. All questions answered.
[2019-10-19 13:12] VITALS: BP 130/73; PULSE 71
== END 2019-10-19 13:23 | disposition home or self-care (01) | DRG 788 ==
LOC: MW.OB 11:09 → OBSVTOIN 10-17 11:09 → MW.OB 10-17 16:00
PROVIDERS: ADMIT Obstetrics & Gynecology; ATTEND Obstetrics & Gynecology
PROC: 10D00Z1 Extraction of Products of Conception, Low, Open Approach (ICD-10-PCS; principal; 2019-10-17)
PROC: 3E033VJ Introduction of Other Hormone into Peripheral Vein, Percutaneous Approach (ICD-10-PCS; 2019-10-17)
PROC: 3E0R3BZ Introduction of Anesthetic Agent into Spinal Canal, Percutaneous Approach (ICD-10-PCS; 2019-10-17)
PROC: 00HU33Z Insertion of Infusion Device into Spinal Canal, Percutaneous Approach (ICD-10-PCS; 2019-10-17)
DX: O48.0 Post-term pregnancy (principal); Z3A.41 41 weeks gestation of pregnancy; Z37.0 Single live birth; O77.0 Labor and delivery complicated by meconium in amniotic fluid; O76 Abnormality in fetal heart rate and rhythm complicating labor and delivery
CPT/HCPCS: 36415; 51702; 59025; 59200; 82803; 85014; 85018; 85027; 86592; 86593; 86850; 86900; 86901; 88307; A9270-GY; J0330; J0595; J0690; J1170; J1885; J2250; J2270; J2405; J2590; J2704; J2795; J3010; J7120

== ENCOUNTER 2019-11-14 20:45 | Emergency (ER) | payer OTHER ==
--- NOTE | 2019-11-14 20:54 | EDM.PDOC ---
ED HPI GENERAL MEDICAL PROBLEM - General Chief Complaint: Back Pain or Injury Stated Complaint: BACK PAIN Time Seen by Provider: 11/14/19 20:53 Source of Information: Reports: Patient History Limitations: Reports: No Limitations - History of Present Illness INITIAL COMMENTS - FREE TEXT/NARRATIVE: HISTORY AND PHYSICAL: History of present illness: Patient is a 27-year-old female who presents to the emergency room with complaints of mid right sided thoracic back pain over the past few weeks. She started to notice this pain since having an epidural and delivering on October 16. She describes the pain as muscle spasms and can feel the muscles get tight and shoot up and down the right side of her back, states when the spasm is "really bad it will take my breath away". She has been trying some gentle heat and Tylenol without much relief. She has brought this concern up to her [facility] as she had followed up . During her follow-up she was more concerned of having mastitis which she states has improved immensely but she is currently taking Ceftin ear. Patient denies any fever, chills, headache, change in vision , syncope or near syncope. Denies any chest pain, shortness of breath or cough. Denies any abdominal pain, nausea, vomiting, diarrhea, constipation or dysuria. Has not noted any blood in urine or stool. Patient has been eating and drinking appropriately. Review of systems: As per history of present illness and below otherwise all systems reviewed and negative. Past medical history: As per history of present illness and as reviewed below otherwise noncontributory. Surgical history: As per history of present illness and as reviewed below otherwise noncontributory. Social history: See social history for further information Family history: As per history of present illness and as reviewed below otherwise noncontributory. Physical exam: General: Well-developed and well-nourished 19-year-old female and oriented. Nontoxic-appearing and in no acute distress. Vital signs are stable and have been reviewed by me. HEENT: Atraumatic, normocephalic, pupils equal and reactive bilaterally, negative for conjunctival pallor or scleral icterus, mucous membranes moist, TMs normal bilaterally, throat clear, neck supple, nontender, trachea midline. No drooling or trismus noted. No meningeal signs. No hot potato voice noted. Lungs: Clear to auscultation, breath sounds equal bilaterally, chest nontender. The mastitis is minimal and has no tenderness to the breast. Heart: S1S2, regular rate and rhythm without overt murmur Abdomen: Soft, nondistended, nontender. Negative for masses or hepatosplenomegaly. Negative for costovertebral tenderness. Pelvis: Stable nontender. C-spine/Back: No pinpoint vertebral tenderness upon palpation. No crepitus, step -offs or obvious deformities. Patient is ambulatory into the emergency room without difficulty or deficit. Able to rock back on heels and walk on toes. Denies any urinary or fecal incontinence. Denies any numbness, tingling or saddle paresthesia. No concerns of serious infection, fracture or cord compression, or cauda equina syndrome. Deep tendon reflexes brisk bilaterally. Skin: Intact, warm, dry. No lesions or rashes noted. Extremities: Atraumatic, moves all extremities per self without difficulty or deficits, negative for cords or calf pain. Neurovascular unremarkable. Neuro: Awake, alert, oriented. Cranial nerves II through XII unremarkable. Cerebellum unremarkable. Motor and sensory unremarkable throughout. Exam nonfocal. Notes: Patient has no vertebral tenderness with palpation. The area that is causing pain does appear to be musculature in nature. We did discuss doing imaging which she declines at this time. We will have her follow-up with her [facility] as she states she does have an appointment next week for reevaluation of her mastitis. Medication and Supportive care measures were reviewed and discussed. Voices understanding and is agreeable to plan of care. Denies any further questions or concerns at this time. Diagnostics: Declines Therapeutics: Declines Prescription: [place] Impression: Back pain Plan: 1. Take the medication as directed. Increase your oral fluids. Gentle heat and stretching. 2. Follow up with your primary care provider and/or OBGYN as we discussed. 3. Return to the ED as needed as discussed. Definitive disposition and diagnosis as appropriate pending reevaluation and review of above. lower back Pain Score (Numeric/FACES): 6 - Related Data Allergies Allergy/AdvReac Type Severity Reaction Status Date / Time bismuth subsalicylate Allergy Vomiting Verified 11/14/19 20:51 [From Pepto-Bismol] azithromycin [From Zithromax] AdvReac Mild Vomiting Verified 11/14/19 20:51 Home Meds: Home Meds Multivitamin [Multi-Day Vitamins] 1 tab PO DAILY 07/01/18 [History] Ibuprofen 800 mg PO Q8H PRN #60 tablet 10/19/19 [Rx] Acetaminophen/HYDROcodone [[place] 325-5 MG] 1 tab PO Q4H PRN #20 tablet 11/14/19 [Rx] Cefdinir 300 mg PO 11/14/19 [History] Past Medical History - Past Health History Medical/Surgical History: Denies Medical/Surgical History HEENT History: Reports: None Cardiovascular History: Reports: None Respiratory History: Reports: None Gastrointestinal History: Reports: None Genitourinary History: Reports: None HIGH SCALER History: Reports: None Musculoskeletal History: Reports: None Neurological History: Reports: None Psychiatric History: Reports: Anxiety Endocrine/Metabolic History: Reports: None Hematologic History: Reports: None Oncologic (Cancer) History: Reports: None Dermatologic History: Reports: None - Infectious Disease History Infectious Disease History: Reports: None - Past Surgical History HEENT Surgical History: Reports: Myringotomy w Tube(s) GI Surgical History: Reports: Appendectomy Social & Family History - Family History Family Medical History: Noncontributory - Caffeine Use Caffeine Use: Reports: Energy Drinks, Soda ED ROS GENERAL - Review of Systems Review Of Systems: Comprehensive ROS is negative, except as noted in HPI. ED EXAM,LOWER BACK PAIN/INJURY - Physical Exam Exam: See Below (See dictation) Course - Vital Signs Last Recorded V/S: Last Vital Signs Temp 97.3 F 11/14/19 21:39 Pulse 78 11/14/19 21:39 Resp 16 11/14/19 21:39 BP 128/76 11/14/19 21:39 Pulse Ox 98 11/14/19 21:39 - Orders/Labs/Meds Labs: Laboratory Tests 11/14/19 Range/Units 21:16 Urine Color YELLOW Urine Appearance CLEAR Urine pH 7.0 (5.0-8.0) Ur Specific [place] 1.025 (1.001-1.035) Urine Protein NEGATIVE (NEGATIVE) mg/dL Urine Glucose (UA) NEGATIVE (NEGATIVE) mg/dL Urine Ketones NEGATIVE (NEGATIVE) mg/dL Urine Occult Blood NEGATIVE (NEGATIVE) Urine Nitrite NEGATIVE (NEGATIVE) Urine Bilirubin NEGATIVE (NEGATIVE) Urine Urobilinogen 0.2 (<2.0) EU/dL Ur Leukocyte Esterase NEGATIVE (NEGATIVE) Departure - Departure Time of Disposition: 21:30 Disposition: Home, Self-Care 01 Clinical Impression: Back pain Qualifiers: Back pain location: thoracic back pain Chronicity: acute Back pain laterality: right Qualified Code(s): M54.6 - Pain in thoracic spine - Discharge Information Prescriptions: Acetaminophen/HYDROcodone [[place] 325-5 MG] 1 tab PO Q4H PRN #20 tablet PRN Reason: Pain Instructions: Acute Back Pain, Adult Referrals: PCP,None [Primary Care Provider] - Forms: ED Department Discharge Additional Instructions: The following information is given to patients seen in the emergency department who are being discharged to home. This information is to outline your options for follow-up care. We provide all patients seen in our emergency department with a follow-up referral. The need for follow-up, as well as the timing and circumstances, are variable depending upon the specifics of your emergency department visit. If you don't have a primary care physician on staff, we will provide you with a referral. We always advise you to contact your personal physician following an emergency department visit to inform them of the circumstance of the visit and for follow-up with them and/or the need for any referrals to a consulting specialist. The emergency department will also refer you to a specialist when appropriate. This referral assures that you have the opportunity for follow-up care with a specialist. All of these measure are taken in an effort to provide you with optimal care, which includes your follow-up. Under all circumstances we always encourage you to contact your private physician who remains a resource for coordinating your care. When calling for follow-up care, please make the office aware that this follow-up is from your recent emergency room visit. If for any reason you are refused follow-up, please contact the [facility] Emergency Department at and asked to speak to the emergency department charge nurse. [facility] [address] [place] [id number] [address] 1. Take the medication as directed. Increase your oral fluids. Gentle heat and stretching. 2. Follow up with your primary care provider and/or OBGYN as we discussed. 3. Return to the ED as needed as discussed.
[2019-11-14 21:40] VITALS: BP 128/76; PULSE 78
== END 2019-11-14 21:40 | disposition home or self-care (01) ==
LOC: MW.ED 20:45
DX: M54.9 Dorsalgia, unspecified (principal); Z88.1 Allergy status to other antibiotic agents; Z88.8 Allergy status to other drugs, medicaments and biological substances; Z79.899 Other long term (current) drug therapy
CPT/HCPCS: 81003; 99283

== ENCOUNTER 2020-08-16 13:17 | Emergency (ER) | payer SELFPAY ==
[2020-08-16] MEDS ORDERED: Sodium Chloride 0.9% 10 ML Syringe FLUSH PRN (13:36)
[2020-08-16] MEDS ORDERED: Sodium Chloride 0.9% 2.5 ML Syringe FLUSH PRN (13:36)
[2020-08-16] MEDS ORDERED: Sodium Chloride 0.9% 1,000 ML IV ONE (13:36)
[2020-08-16] MEDS ORDERED: Ondansetron 4 MG/2 ML SDV IVPUSH ONE (13:36)
--- NOTE | 2020-08-16 13:39 | EDM.PDOC ---
ED HPI GENERAL MEDICAL PROBLEM - General Chief Complaint: General Stated Complaint: ABD PAIN Time Seen by Provider: 08/16/20 13:27 - History of Present Illness INITIAL COMMENTS - FREE TEXT/NARRATIVE: History of present illness: #2 prior episodes of mastitis is previously had resolution once she starts dicloxacillin. Yesterday her child was being seen in the clinic for runny nose and the child is being breast-fed. When the patient began to have pain in the left breast she called her second class welder who called in dicloxacillin for the third time. Since she started the dicloxacillin she has had nausea and vomiting and worsening pain in her breast. The patient feels lightheaded like she is dehydrated. The patient had some degree of nausea with prior episodes of mastitis which went away after the initial dicloxacillin dose was initiated. She also had nausea yesterday before she took the dicloxacillin. But it got a lot worse after she took the dicloxacillin. [] Review of systems: As per history of present illness and below otherwise all systems reviewed and negative. Past medical history: As per history of present illness and as reviewed below otherwise noncontributory. Surgical history: As per history of present illness and as reviewed below otherwise noncontributory. Social history: No reported history of drug or alcohol abuse. Family history: As per history of present illness and as reviewed below otherwise noncontributory. Physical exam: Constitutional - well developed, well-nourished and in no acute distress HEENT - normocephalic, no evidence of trauma - external nose and mouth normal - no mass in neck and no JVD - mucosae moist EYES - full EOM, PERRL, no icterus - no evidence of inflammation, injection, or drainage Respiratory - no respiratory distress, equal bilateral expansion, lungs clear to auscultation and no abnormal lung sounds Cardiovascular - Regular Rhythm with S1 and S2 appreciated and no murmur, gallop or rub. GI - abdomen soft without distension or organomegaly - normal bowel sounds - no guard or rebound Musculoskeletal no gross deformity of long bones or joints - no tenderness, swelling or edema Neurologic - Alert and oriented times four - CN II-XII grossly intact - motor sensory and coordination symmetrically normal Psychiatric - appropriate mood and affect with normal thought content Hematologic - No petechiae or purpura - mucosa appropriate color and sclera not pale - normal nail bed color and refill Integument -breast is larger than the right. It is erythematous. It has diffuse tenderness. No rash or evidence of trauma - normal turgor Diagnostics: [] Therapeutics: [] Impression: [] Plan: [] Definitive disposition and diagnosis as appropriate pending reevaluation and review of above. Left Breast Pain Score (Numeric/FACES): 8 - Related Data Allergies Allergy/AdvReac Type Severity Reaction Status Date / Time bismuth subsalicylate Allergy Vomiting Verified 08/16/20 13:27 [From Pepto-Bismol] azithromycin [From Zithromax] AdvReac Mild Vomiting Verified 08/16/20 13:27 Home Meds: Home Meds Dicloxacillin 500 mg PO DAILY 08/16/20 [History] clindamycin HCL [Cleocin] 300 mg PO Q6H 14 Days #56 cap 08/16/20 [Rx] Past Medical History - Past Health History Medical/Surgical History: Denies Medical/Surgical History HEENT History: Reports: None Cardiovascular History: Reports: None Respiratory History: Reports: None Gastrointestinal History: Reports: None Genitourinary History: Reports: None 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 Musculoskeletal History: Reports: None Neurological History: Reports: None Psychiatric History: Reports: Anxiety Endocrine/Metabolic History: Reports: None Hematologic History: Reports: None Oncologic (Cancer) History: Reports: None Dermatologic History: Reports: None - Infectious Disease History Infectious Disease History: Reports: None - Past Surgical History HEENT Surgical History: Reports: Myringotomy w Tube(s) Other HEENT Surgeries/Procedures: bilateral tubes to ears GI Surgical History: Reports: Appendectomy Female Surgical History: Reports: Section Social & Family History - Family History Family Medical History: No Pertinent Family History - Tobacco Use Tobacco Use Status *Q: Never Tobacco User - Caffeine Use Caffeine Use: Reports: None - Recreational Drug Use Recreational Drug Use: No ED ROS GENERAL - Review of Systems Review Of Systems: Comprehensive ROS is negative, except as noted in HPI. ED EXAM, GENERAL - Physical Exam Exam: See Below Free Text/Narrative:: My physical exam as in the HPI Course - Vital Signs Last Recorded V/S: Last Vital Signs Temp 38.1 C 08/16/20 15:10 Pulse 91 08/16/20 15:10 Resp 18 08/16/20 15:10 BP 103/45 L 08/16/20 15:10 Pulse Ox 97 08/16/20 15:10 - Orders/Labs/Meds Orders: Active Orders 24 hr Category Date Time Status CULTURE BLOOD [BC] Stat Lab 08/16/20 13:45 Received CULTURE BLOOD [BC] Stat Lab 08/16/20 13:54 Received Sodium Chloride 0.9% [Saline Flush] Med 08/16/20 13:36 Active 10 ml FLUSH ASDIRECTED PRN Sodium Chloride 0.9% [Saline Flush] Med 08/16/20 13:36 Active 2.5 ml FLUSH ASDIRECTED PRN Blood Culture x2 Reflex Set [OM.PC] Stat Oth 08/16/20 13:36 Ordered Saline Lock Insert [OM.PC] Stat Oth 08/16/20 13:36 Ordered Medication Orders Sodium Chloride (Sodium Chloride 0.9% 10 Ml Syringe) 10 ml FLUSH ASDIRECTED PRN PRN Reason: Keep Vein Open Last Admin: 08/16/20 13:59 Dose: 10 ml Documented by: JEWEL Sodium Chloride (Sodium Chloride 0.9% 2.5 Ml Syringe) 2.5 ml FLUSH ASDIRECTED PRN PRN Reason: Keep Vein Open Last Admin: 08/16/20 13:59 Dose: 2.5 ml Documented by: JEWEL Labs: Laboratory Tests 08/16/20 08/16/20 08/16/20 Range/Units 13:45 13:45 13:45 WBC 18.51 H (4.0-11.0) K/uL RBC 4.64 (4.30-5.90) M/uL Hgb 13.1 (12.0-16.0) g/dL Hct 39.7 (36.0-46.0) % MCV 85.6 (80.0-98.0) fL MCH 28.2 (27.0-32.0) pg MCHC 33.0 (31.0-37.0) g/dL RDW Std Deviation 42.5 (28.0-62.0) fl RDW Coeff of Sobeida 14 (11.0-15.0) % Plt Count 239 (150-400) K/uL MPV 8.90 (7.40-12.00) fL Neut % (Auto) 91.1 H (48.0-80.0) % Lymph % (Auto) 5.6 L (16.0-40.0) % Dixon % (Auto) 2.9 (0.0-15.0) % Eos % (Auto) 0.3 (0.0-7.0) % Baso % (Auto) 0.1 (0.0-1.5) % Neut # (Auto) 16.9 H (1.4-5.7) K/uL Lymph # (Auto) 1.0 (0.6-2.4) K/uL Dixon # (Auto) 0.5 (0.0-0.8) K/uL Eos # (Auto) 0.1 (0.0-0.7) K/uL Baso # (Auto) 0.0 (0.0-0.1) K/uL Nucleated RBC % 0.0 /100WBC Nucleated RBCs # 0 K/uL Lactate 0.7 (0.20-2.00) mmol/L Sodium 138 (136-145) mmol/L Potassium 3.4 L (3.5-5.1) mmol/L Chloride 101 (98-107) mmol/L Carbon Dioxide 22.4 (21.0-32.0) mmol/L BUN 13 (7.0-18.0) mg/dL Creatinine 0.9 (0.6-1.0) mg/dL Est Cr Clr Drug Dosing 86.10 mL/min Estimated GFR (MDRD) > 60.0 ml/min Glucose 97 (74-106) mg/dL Calcium 8.8 (8.5-10.1) mg/dL Total Bilirubin 0.6 (0.2-1.0) mg/dL AST 11 L (15-37) IU/L ALT 19 (14-63) IU/L Alkaline Phosphatase 118 H (46-116) U/L Total Protein 7.9 (6.4-8.2) g/dL Albumin 3.7 (3.4-5.0) g/dL Globulin 4.2 H (2.6-4.0) g/dL Albumin/Globulin Ratio 0.9 (0.9-1.6) Meds: Medications Generic Name Dose Route Start Last Admin Trade Name Freq PRN Reason Stop Dose Admin Sodium Chloride 10 ml 08/16/20 13:36 08/16/20 13:59 Sodium Chloride 0.9% 10 Ml Syringe FLUSH 10 ml ASDIRECTED PRN Administration Keep Vein Open Sodium Chloride 2.5 ml 08/16/20 13:36 08/16/20 13:59 Sodium Chloride 0.9% 2.5 Ml Syringe FLUSH 2.5 ml ASDIRECTED PRN Administration Keep Vein Open Discontinued Medications Generic Name Dose Route Start Last Admin Trade Name Wernerq PRN Reason Stop Dose Admin Acetaminophen 1,000 mg 08/16/20 13:47 08/16/20 13:56 Acetaminophen 500 Mg Tab PO 08/16/20 13:48 1,000 mg ONETIME ONE Administration Clindamycin HCl Confirm 08/16/20 15:00 08/16/20 15:09 Clindamycin Hcl 150 Mg Cap Administered 08/16/20 15:01 Not Given Dose 300 mg .ROUTE .STK-MED ONE Clindamycin HCl 300 mg 08/16/20 15:06 08/16/20 15:08 Clindamycin Hcl 150 Mg Cap PO 08/16/20 15:07 300 mg ONETIME ONE Administration Sodium Chloride 1,000 mls @ 999 mls/hr 08/16/20 13:36 08/16/20 13:55 Normal Saline IV 08/16/20 14:36 999 mls/hr .BOLUS ONE Administration Ketorolac Tromethamine 15 mg 08/16/20 14:30 08/16/20 15:07 Ketorolac 30 Mg/Ml Sdv IVPUSH 08/16/20 14:31 15 mg ONETIME ONE Administration Ondansetron HCl 4 mg 08/16/20 13:36 08/16/20 13:55 Ondansetron 4 Mg/2 Ml Sdv IVPUSH 08/16/20 13:37 4 mg ONETIME ONE Administration Departure - Departure Time of Disposition: 15:21 Disposition: Home, Self-Care 01 Condition: Good Clinical Impression: Mastitis, Medication reaction - Discharge Information Prescriptions: clindamycin HCL [Cleocin] 300 mg PO Q6H 14 Days #56 cap Instructions: Mastitis, [id number] Referrals: PCP,Not In Area [Primary Care Provider] - Forms: ED Department Discharge Additional Instructions: To empty her breast every 2-3 hours at the most. Even after feed you should pump. Use heat and massage to break up the ducts in the breast tissue. ibuProfen naproxen or Tylenol for pain. [facility] [address] [place] [address] [facility] [address] [place] [address] The following information is given to patients seen in the emergency department who are being discharged to home. This information is to outline your options for follow-up care. We provide all patients seen in our emergency department with a follow-up referral. The need for follow-up, as well as the timing and circumstances, are variable depending upon the specifics of your emergency department visit. If you don't have a primary care physician on staff, we will provide you with a referral. We always advise you to contact your personal physician following an emergency department visit to inform them of the circumstance of the visit and for follow-up with them and/or the need for any referrals to a consulting specialist. The emergency department will also refer you to a specialist when appropriate. This referral assures that you have the opportunity for follow-up care with a specialist. All of these measure are taken in an effort to provide you with optimal care, which includes your follow-up. Under all circumstances we always encourage you to contact your private physician who remains a resource for coordinating your care. When calling for follow-up care, please make the office aware that this follow-up is from your recent emergency room visit. If for any reason you are refused follow-up, please contact the [facility] Emergency Department at and asked to speak to the emergency department charge nurse. Sepsis Event Note (ED) - Evaluation Sepsis Screening Result: No Definite Risk - Focused Exam Vital Signs: Vital Signs Temp Temp Temp Pulse Resp BP Pulse Ox 08/16/20 15:10 38.1 C 91 18 103/45 L 97 08/16/20 14:00 102 H 20 119/69 96 08/16/20 13:56 38.7 C H 08/16/20 13:41 38.7 C H 08/16/20 13:28 37.0 C 120 H 20 120/71 96 - My Orders Last 24 Hours: My Active Orders 08/16/20 13:36 Sodium Chloride 0.9% [Saline Flush] 10 ml FLUSH ASDIRECTED PRN Sodium Chloride 0.9% [Saline Flush] 2.5 ml FLUSH ASDIRECTED PRN Blood Culture x2 Reflex Set [OM.PC] Stat Saline Lock Insert [OM.PC] Stat 08/16/20 13:45 CULTURE BLOOD [BC] Stat 08/16/20 13:54 CULTURE BLOOD [BC] Stat - Assessment/Plan Last 24 Hours: My Active Orders 08/16/20 13:36 Sodium Chloride 0.9% [Saline Flush] 10 ml FLUSH ASDIRECTED PRN Sodium Chloride 0.9% [Saline Flush] 2.5 ml FLUSH ASDIRECTED PRN Blood Culture x2 Reflex Set [OM.PC] Stat Saline Lock Insert [OM.PC] Stat 08/16/20 13:45 CULTURE BLOOD [BC] Stat 08/16/20 13:54 CULTURE BLOOD [BC] Stat
[2020-08-16] MEDS ORDERED: Acetaminophen 500 MG Tab PO ONE (13:47)
[2020-08-16 14:24] LABS: BLOOD UREA NITROGEN,BUN 13 mg/dL (7.0-18.0); CARBON DIOXIDE,CO2 22.4 mmol/L (21.0-32.0); CHLORIDE,CL 101 mmol/L (98-107); GLUCOSE RANDOM 97 mg/dL (74-106); POTASSIUM,K 3.4 mmol/L (3.5-5.1); SODIUM,NA 138 mmol/L (136-145)
[2020-08-16] MEDS ORDERED: Ketorolac 30 MG/ML SDV IVPUSH ONE (14:30)
[2020-08-16] MEDS ORDERED: Clindamycin Palmitate Solution 75 MG/5 ML 100 ML Bottle PO STA (14:31)
[2020-08-16] MEDS ORDERED: Clindamycin HCl 150 MG Cap ONE (15:00)
[2020-08-16] MEDS ORDERED: Clindamycin HCl 150 MG Cap PO ONE (15:06)
[2020-08-16 15:44] VITALS: BP 99/43; PULSE 88
== END 2020-08-16 15:44 | disposition home or self-care (01) ==
LOC: MW.ED 13:17
DX: N61.0 Mastitis without abscess (principal); T36.0X5A Adverse effect of penicillins, initial encounter; Z88.8 Allergy status to other drugs, medicaments and biological substances; Z88.1 Allergy status to other antibiotic agents; Z98.890 Other specified postprocedural states
CPT/HCPCS: 36415; 80053; 83605; 85025; 87040; 96374; 99283; A9270; J1885; J2405; J7030

== ENCOUNTER 2020-11-30 17:46 | Emergency (ER) | payer OTHER ==
--- NOTE | 2020-11-30 19:34 | EDM.PDOC ---
ED HPI GENERAL MEDICAL PROBLEM - General Chief Complaint: General Stated Complaint: MASITIS Time Seen by Provider: 11/30/20 18:40 Source of Information: Reports: Patient History Limitations: Reports: No Limitations - History of Present Illness INITIAL COMMENTS - FREE TEXT/NARRATIVE: HISTORY AND PHYSICAL: History of present illness: Patient is a 20-year-old female who presents emergency room today with concern of mastitis of her right breast that started yesterday and worsened today. Patient states that her baby is approximately 13 months old and that she is continually still breast-feeding. Patient states that she has had 3-4 prior episodes of prior mastitis when her baby was younger. Patient states that the baby has started to decrease the amount she has been eating and has noticed this has likely triggered her mastitis in her right breast. Patient states she had some leftover dicloxacillin from prior mastitis infection and has taken 3 doses of this since yesterday and has improving symptoms of her mastitis of her right breast. However, patient states the dicloxacillin makes her nauseous almost instantly after taking it and has a difficult time taking this antibiotic and was wondering if a different antibiotic was possible. Patient states that she also has some leftover clindamycin at home but was unsure if this was for mastitis and could not remember if this was safe to take for mastitis or not so came to the emergency room for further evaluation. Patient notes that she has been having some fevers off and on which is typical of her usual mastitis but denies any other symptoms or concerns. Patient denies fever, chills, chest pain, shortness of breath, or cough. Denies headache, neck stiff ness, change in vision, syncope, or near syncope. Denies nausea, vomiting, abdominal pain, diarrhea, constipation, or dysuria. Has not noted any blood in urine or stool. Patient has been eating and drinking appropriately. Review of systems: As per history of present illness and below otherwise all systems reviewed and negative. Past medical history: As per history of present illness and as reviewed below otherwise noncontributory. Surgical history: As per history of present illness and as reviewed below otherwise noncontributory. Social history: See social history for further information Family history: As per history of present illness and as reviewed below otherwise noncontributory. Physical exam: General: Patient is alert, oriented, and in no acute distress. Patient sitting comfortably on exam table. Patient is febrile 101.5 on exam. Otherwise, vital stable and reviewed by me. Noted that during triage, patient has a heart rate of 103, however on my exam patient's heart rate is 98. HEENT: Atraumatic, normocephalic, pupils equal and reactive bilaterally, negative for conjunctival pallor or scleral icterus, mucous membranes moist, TMs normal bilaterally, throat clear, neck supple, nontender, trachea midline. No drooling or trismus noted. No meningeal signs. No hot potato voice noted. Breast: Rod Placer at bedside Radha James RN. The right breast is notably larger than the left with erythematous of the quadrant from the 9:00 to the 11 o'clock position of the right breast with tenderness of this area. No underlying abscess noted. Lungs: Clear to auscultation, breath sounds equal bilaterally, chest nontender. Heart: S1S2, regular rate and rhythm without overt murmur Abdomen: Soft, nondistended, nontender. Negative for masses or hepatosplenomegaly. Negative for costovertebral tenderness. Pelvis: Stable nontender. Genitourinary: Deferred. Rectal: Deferred. Skin: Intact, warm, dry. No lesions or rashes noted. Extremities: Atraumatic, negative for cords or calf pain. Neurovascular unremarkable. Neuro: Awake, alert, oriented. Cranial nerves II through XII unremarkable. Cerebellum unremarkable. Motor and sensory unremarkable throughout. Exam nonfocal. Notes: Patient is a 20-year-old female, with history of prior episodes of mastitis, who presents emergency room today with concern of right breast tenderness and redness that started last night and worsened today. Patient has taken a total of 3 doses of dicloxacillin but does get nauseous on this antibiotic and requesting a different antibiotic for her mastitis. Patient is noted to be febrile of 101.5 on exam in triage vitals tachycardic of 103, on my exam patient's heart rate is 98 bpm. Patient is nontoxic and otherwise well- appearing on exam. Patient is noticed to have mastitis of her right breast on exam without sign of abscess. I did offer lab work to further assess possible leukocytosis/concern for possible sepsis, but patient declines this requesting simple antibiotic change and discharge home. All risks versus benefits discussed with patient and expresses understanding. Strict return precautions thoroughly discussed with patient. Discussed importance for follow-up with primary care provider/women's health provider. Voices understanding and is agreeable to plan of care. Denies any further questions or concerns at this time. Diagnostics: I did offer lab work today for mastitis, possible sepsis, however patient declines at this time. All risks versus benefits discussed with patient and expresses understanding. 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 Take medication as prescribed. You can alternate ibuprofen and Tylenol as directed for pain and discomfort. 2. Continually to encourage frequent feeding on the right. After baby feeds, encourage emptying the breast completely on the affected side every 2-3 and no longer than 3 hours before completely emptying the breast. 3. Encourage you to use heat and massage to the affected area while feeding and pumping to encourage breaking up any clogged ducts. 4. Follow-up with a women's health care provider or a primary care provider as discussed. Return to the ED as needed and as discussed. Definitive disposition and diagnosis as appropriate pending reevaluation and review of above. headache/right breast Pain Score (Numeric/FACES): 6 - Related Data Allergies Allergy/AdvReac Type Severity Reaction Status Date / Time bismuth subsalicylate Allergy Vomiting Verified 11/30/20 19:07 [From Pepto-Bismol] azithromycin [From Zithromax] AdvReac Mild Vomiting Verified 11/30/20 19:07 Home Meds: Home Meds Dicloxacillin 500 mg PO DAILY 08/16/20 [History] Clindamycin HCl 450 mg PO Q8H 10 Days #30 capsule 11/30/20 [Rx] Past Medical History - Past Health History Medical/Surgical History: Denies Medical/Surgical History HEENT History: Reports: None Cardiovascular History: Reports: None Respiratory History: Reports: None Gastrointestinal History: Reports: None Genitourinary History: Reports: None 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 Musculoskeletal History: Reports: None Neurological History: Reports: None Psychiatric History: Reports: Anxiety Endocrine/Metabolic History: Reports: None Hematologic History: Reports: None Oncologic (Cancer) History: Reports: None Dermatologic History: Reports: None - Infectious Disease History Infectious Disease History: Reports: None - Past Surgical History HEENT Surgical History: Reports: Myringotomy w Tube(s) Other HEENT Surgeries/Procedures: bilateral tubes to ears GI Surgical History: Reports: Appendectomy Female Surgical History: Reports: Section Social & Family History - Family History Family Medical History: No Pertinent Family History - Caffeine Use Caffeine Use: Reports: None - Recreational Drug Use Recreational Drug Use: No ED ROS GENERAL - Review of Systems Review Of Systems: Comprehensive ROS is negative, except as noted in HPI. ED EXAM, GENERAL - Physical Exam Exam: See Below (See dictation) Course - Vital Signs Last Recorded V/S: Last Vital Signs Temp 101.5 F H 11/30/20 19:17 Pulse 103 H 11/30/20 19:43 Resp 183 H 11/30/20 19:43 BP 121/70 11/30/20 19:43 Pulse Ox 97 11/30/20 19:43 Departure - Departure Time of Disposition: 19:33 Disposition: Home, Self-Care 01 Clinical Impression: Mastitis - Discharge Information Prescriptions: Clindamycin HCl 450 mg PO Q8H 10 Days #30 capsule Instructions: Mastitis, [id number] Referrals: PCP,None [Primary Care Provider] - Forms: ED Department Discharge Additional Instructions: The following information is given to patients seen in the emergency department who are being discharged to home. This information is to outline your options for follow-up care. We provide all patients seen in our emergency department with a follow-up referral. The need for follow-up, as well as the timing and circumstances, are variable depending upon the specifics of your emergency department visit. If you don't have a primary care physician on staff, we will provide you with a referral. We always advise you to contact your personal physician following an emergency department visit to inform them of the circumstance of the visit and for follow-up with them and/or the need for any referrals to a consulting specialist. The emergency department will also refer you to a specialist when appropriate. This referral assures that you have the opportunity for follow-up care with a specialist. All of these measure are taken in an effort to provide you with optimal care, which includes your follow-up. Under all circumstances we always encourage you to contact your private physician who remains a resource for coordinating your care. When calling for follow-up care, please make the office aware that this follow-up is from your recent emergency room visit. If for any reason you are refused follow-up, please contact the [facility] Emergency Department at and asked to speak to the emergency department charge nurse. [facility] [address] [place] [address] [facility] [address] [place] [address] [facility] [address] [place] [address] 1. Take medication as prescribed. You can alternate ibuprofen and Tylenol as directed for pain and discomfort. 2. Continually to encourage frequent feeding on the right. After baby feeds, encourage emptying the breast completely on the affected side every 2-3 and no longer than 3 hours before completely emptying the breast. 3. Encourage you to use heat and massage to the affected area while feeding and pumping to encourage breaking up any clogged ducts. 4. Follow-up with a women's health care provider or a primary care provider as discussed. Return to the ED as needed and as discussed. Sepsis Event Note (ED) - Evaluation Sepsis Screening Result: Possible Sepsis Risk - Focused Exam Vital Signs: Vital Signs Temp Temp Pulse Resp BP Pulse Ox 11/30/20 19:43 103 H 183 H 121/70 97 11/30/20 19:17 101.5 F H 102 H 17 97 11/30/20 19:08 98.9 F 107 H 17 128/71 96
[2020-11-30 20:00] VITALS: BP 121/70; PULSE 103
== END 2020-11-30 19:43 | disposition home or self-care (01) ==
LOC: MW.ED 17:46
DX: N61.0 Mastitis without abscess (principal); Z88.1 Allergy status to other antibiotic agents; Z88.8 Allergy status to other drugs, medicaments and biological substances
CPT/HCPCS: 99283

== ENCOUNTER 2021-12-22 14:23 | Emergency (ER) | payer OTHER ==
[2021-12-22 15:49] LABS: CORONAVIRUS COVID-19 NAA NEGATIVE (NEGATIVE); INFLUENZA A NAA NEGATIVE (NEGATIVE); INFLUENZA B NAA NEGATIVE (NEGATIVE)
[2021-12-22 16:51] LABS: CARBON DIOXIDE,CO2 25.5 mmol/L (21.0-32.0)
[2021-12-22] MEDS: Iopamidol 755 MG/ML 500 ML Multipack Bottle IVPUSH STA (17:21)
[2021-12-22 18:50] VITALS: BP 123/78; PULSE 63
== END 2021-12-22 18:49 | disposition home or self-care (01) ==
LOC: MW.ED 14:23
DX: R07.89 Other chest pain (principal); Z28.310 Unvaccinated for COVID-19; Z88.1 Allergy status to other antibiotic agents; Z88.0 Allergy status to penicillin; Z88.8 Allergy status to other drugs, medicaments and biological substances; Z20.822 Contact with and (suspected) exposure to COVID-19
CPT/HCPCS: 0240U; 36415; 71275; 80053; 84703; 85025; 99285; Q9967; 99284

== ENCOUNTER 2022-01-16 17:29 | Emergency (ER) | payer OTHER ==
[2022-01-16 17:46] VITALS: BP 128/75; PULSE 72
[2022-01-16 18:36] LABS: CORONAVIRUS COVID-19 NAA NEGATIVE (NEGATIVE); INFLUENZA A NAA NEGATIVE (NEGATIVE); INFLUENZA B NAA NEGATIVE (NEGATIVE)
[2022-01-16 21:56] LABS: CARBON DIOXIDE,CO2 24.7 mmol/L (21.0-32.0); POTASSIUM,K 3.8 mmol/L (3.5-5.1)
== END 2022-01-17 00:07 | disposition home or self-care (01) ==
LOC: MW.ED 17:29
DX: R42 Dizziness and giddiness (principal); R11.0 Nausea; R53.83 Other fatigue; Z20.822 Contact with and (suspected) exposure to COVID-19; Z88.1 Allergy status to other antibiotic agents; Z88.8 Allergy status to other drugs, medicaments and biological substances
CPT/HCPCS: 0240U; 36415; 71045; 80053; 81003; 82375; 84703; 85025; 93005; 99284; 93010

== ENCOUNTER 2022-09-01 18:01 | Emergency (ER) | payer OTHER ==
[2022-09-01 19:22] LABS: CORONAVIRUS COVID-19 NAA NEGATIVE (NEGATIVE); INFLUENZA A NAA NEGATIVE (NEGATIVE); INFLUENZA B NAA NEGATIVE (NEGATIVE); RESPIRATORY SYNCYTIAL VIR NAA NEGATIVE (NEGATIVE)
[2022-09-01 19:26] LABS: CARBON DIOXIDE,CO2 24.5 mmol/L (21.0-32.0); POTASSIUM,K 4.1 mmol/L (3.5-5.1)
[2022-09-01 19:51] VITALS: BP 122/79; PULSE 92
== END 2022-09-01 19:35 | disposition home or self-care (01) ==
LOC: MW.ED 18:01
DX: J40 Bronchitis, not specified as acute or chronic (principal); Z88.8 Allergy status to other drugs, medicaments and biological substances; Z88.1 Allergy status to other antibiotic agents; Z86.16 Personal history of COVID-19; Z79.899 Other long term (current) drug therapy; Z20.822 Contact with and (suspected) exposure to COVID-19
CPT/HCPCS: 0241U; 36415; 71045; 80053; 83605; 85025; 99283

== ENCOUNTER 2023-03-15 18:34 | Emergency (ER) | payer OTHER ==
[2023-03-15] MEDS ORDERED: Sodium Chloride 0.9% 10 ML Syringe FLUSH PRN (20:02)
[2023-03-15] MEDS ORDERED: Sodium Chloride 0.9% 2.5 ML Syringe FLUSH PRN (20:02)
[2023-03-15] MEDS ORDERED: Sodium Chloride 0.9% 1,000 ML IV STA ×2 (20:03→21:44)
[2023-03-15] MEDS ORDERED: Metoclopramide 10 MG/2 ML SDV IVPUSH STA (20:04)
[2023-03-15 20:58] LABS: BASOPHILS ABSOLUTE AUTO 0.02 K/uL (0.00-0.20); BASOPHILS PERCENT AUTO 0.2 % (0.0-1.0); EOSINOPHILS ABSOLUTE AUTO 0.04 K/uL (0.00-0.45); EOSINOPHILS PERCENT AUTO 0.3 % (0.0-6.0); HEMATOCRIT 38.9 % (37.0-47.0); HEMOGLOBIN 12.9 g/dL (12.0-16.0); IMMATURE GRAN ABSOLUTE AUTO 0.04 K/uL (0.00-0.05); IMMATURE GRAN PERCENT AUTO 0.3 % (0.0-0.4); LYMPHOCYTES ABSOLUTE AUTO 2.04 K/uL (1.00-4.80); LYMPHOCYTES PERCENT AUTO 17.3 % (24.0-44.0); MEAN CORPUSCULAR HEMOGLOBIN 26.9 pg (28.0-32.0); MEAN CORPUSCULAR HGB CONC 33.2 g/dL (32.0-36.0); MEAN CORPUSCULAR VOLUME 81.2 fL (83.0-99.0); MEAN PLATELET VOLUME 8.6 fL (9.4-12.3); MONOCYTES ABSOLUTE AUTO 0.61 K/uL (0.00-0.80); MONOCYTES PERCENT AUTO 5.2 % (0.0-8.0); NEUTROPHILS PERCENT AUTO 76.7 % (41.0-71.0); PLATELET COUNT,PLT 291 K/uL (150-400); RED BLOOD CELL COUNT 4.79 M/uL (4.10-5.30); WHITE BLOOD CELL COUNT,WBC 11.78 K/uL (3.9-11.3)
[2023-03-15 21:08] LABS: APPEARANCE,URINE SLT CLOUDY; BILIRUBIN,URINE NEGATIVE (NEGATIVE); GLUCOSE,URINE NEGATIVE (NEGATIVE); KETONES,URINE 40 mg/dL (NEGATIVE); LEUKOCYTE ESTERASE,URINE NEGATIVE (NEGATIVE); NITRITE,URINE NEGATIVE (NEGATIVE); OCCULT BLOOD,URINE NEGATIVE (NEGATIVE); PROTEIN,URINE NEGATIVE (NEGATIVE); UROBILINOGEN,URINE 0.2 EU/dL (<2.0)
[2023-03-15 21:23] LABS: COLOR,URINE DARK YELLOW
[2023-03-15 21:27] LABS: A/G RATIO 0.9 (0.9-1.6); ALBUMIN 3.8 g/dL (3.4-5.0); BILIRUBIN TOTAL 0.4 mg/dL (0.2-1.0); CALCIUM 9.2 mg/dL (8.5-10.1); CARBON DIOXIDE,CO2 26.1 mmol/L (21.0-32.0); CREATININE 0.7 mg/dL (0.6-1.0); EST CRCL DRUG DOSING (CG) 107.93 mL/min; POTASSIUM,K 3.6 mmol/L (3.5-5.1)
[2023-03-16 02:42] VITALS: BP 124/57; PULSE 85
== END 2023-03-15 22:27 | disposition home or self-care (01) ==
LOC: MW.ED 18:34
DX: O21.9 Vomiting of pregnancy, unspecified (principal); Z86.16 Personal history of COVID-19; Z88.8 Allergy status to other drugs, medicaments and biological substances; Z88.1 Allergy status to other antibiotic agents; Z3A.08 8 weeks gestation of pregnancy
CPT/HCPCS: 36415; 80053; 81003; 83690; 83735; 85025; 96361; 96374; 99284; J2765; J3490; J7030

== ENCOUNTER 2023-12-09 14:03 | Emergency (ER) | payer OTHER, BC ==
[2023-12-09 14:14] VITALS: PULSE 77
[2023-12-09] MEDS: Sodium Chloride 0.9% 1,000 ML IV ONE (14:52)
[2023-12-09] MEDS: Ondansetron 4 MG/2 ML SDV IVPUSH ONE (14:52)
[2023-12-09] MEDS: Sodium Chloride 0.9% 2.5 ML Syringe FLUSH PRN (14:59)
[2023-12-09] MEDS: Sodium Chloride 0.9% 10 ML Syringe FLUSH PRN (14:59)
[2023-12-09 15:00] LABS: BASOPHILS ABSOLUTE AUTO 0.03 K/uL (0.00-0.20); BASOPHILS PERCENT AUTO 0.4 % (0.0-1.0); EOSINOPHILS ABSOLUTE AUTO 0.13 K/uL (0.00-0.45); EOSINOPHILS PERCENT AUTO 1.7 % (0.0-6.0); HEMATOCRIT 37.9 % (37.0-47.0); IMMATURE GRAN ABSOLUTE AUTO 0.02 K/uL (0.00-0.05); IMMATURE GRAN PERCENT AUTO 0.3 % (0.0-0.4); LYMPHOCYTES PERCENT AUTO 30.4 % (24.0-44.0); MEAN CORPUSCULAR HEMOGLOBIN 24.4 pg (28.0-32.0); MEAN CORPUSCULAR HGB CONC 31.7 g/dL (32.0-36.0); MEAN PLATELET VOLUME 8.9 fL (9.4-12.3); MONOCYTES ABSOLUTE AUTO 0.42 K/uL (0.00-0.80); MONOCYTES PERCENT AUTO 5.5 % (0.0-8.0); NEUTROPHILS ABSOLUTE AUTO 4.67 K/uL (1.80-7.70); NEUTROPHILS PERCENT AUTO 61.7 % (41.0-71.0); PLATELET COUNT,PLT 259 K/uL (150-400); RED BLOOD CELL COUNT 4.92 M/uL (4.10-5.30); WHITE BLOOD CELL COUNT,WBC 7.57 K/uL (3.9-11.3)
[2023-12-09 15:28] LABS: ALBUMIN 3.6 g/dL (3.4-5.0); BILIRUBIN TOTAL 0.3 mg/dL (0.2-1.0); CALCIUM 8.2 mg/dL (8.5-10.1); CARBON DIOXIDE,CO2 27.8 mmol/L (21.0-32.0); CREATININE 0.9 mg/dL (0.6-1.0); EST CRCL DRUG DOSING (CG) 83.23 mL/min; POTASSIUM,K 4.3 mmol/L (3.5-5.1); PROTEIN TOTAL,TP 7.2 g/dL (6.4-8.2)
[2023-12-09 17:08] VITALS: BP 103/52
== END 2023-12-09 17:02 | disposition home or self-care (01) ==
LOC: MW.ED 14:03
DX: K80.70 Calculus of gallbladder and bile duct without cholecystitis without obstruction (principal); Z88.1 Allergy status to other antibiotic agents; Z88.8 Allergy status to other drugs, medicaments and biological substances; Z79.899 Other long term (current) drug therapy; Z90.49 Acquired absence of other specified parts of digestive tract
CPT/HCPCS: 36415; 76705; 80053; 81025; 83690; 83735; 85025; 93005; 96361; 96374; 99284; J2405; J3490; J7030; 93010

== ENCOUNTER 2023-12-11 16:24 | Emergency (ER) | payer OTHER, BC ==
[2023-12-11] MEDS: Sodium Chloride 0.9% 1,000 ML IV ONE (16:49)
[2023-12-11] MEDS: Ketorolac 30 MG/ML SDV IVPUSH ONE (16:58)
[2023-12-11] MEDS: Ondansetron 4 MG/2 ML SDV IVPUSH ONE ×2 (16:58→19:09)
[2023-12-11 17:01] LABS: BASOPHILS ABSOLUTE AUTO 0.02 K/uL (0.00-0.20); BASOPHILS PERCENT AUTO 0.3 % (0.0-1.0); EOSINOPHILS ABSOLUTE AUTO 0.19 K/uL (0.00-0.45); EOSINOPHILS PERCENT AUTO 2.6 % (0.0-6.0); HEMATOCRIT 39.6 % (37.0-47.0); HEMOGLOBIN 12.5 g/dL (12.0-16.0); IMMATURE GRAN ABSOLUTE AUTO 0.03 K/uL (0.00-0.05); IMMATURE GRAN PERCENT AUTO 0.4 % (0.0-0.4); LYMPHOCYTES ABSOLUTE AUTO 2.29 K/uL (1.00-4.80); LYMPHOCYTES PERCENT AUTO 31.4 % (24.0-44.0); MEAN CORPUSCULAR HEMOGLOBIN 24.4 pg (28.0-32.0); MEAN CORPUSCULAR HGB CONC 31.6 g/dL (32.0-36.0); MEAN CORPUSCULAR VOLUME 77.2 fL (83.0-99.0); MEAN PLATELET VOLUME 9.1 fL (9.4-12.3); MONOCYTES ABSOLUTE AUTO 0.43 K/uL (0.00-0.80); MONOCYTES PERCENT AUTO 5.9 % (0.0-8.0); NEUTROPHILS ABSOLUTE AUTO 4.34 K/uL (1.80-7.70); NEUTROPHILS PERCENT AUTO 59.4 % (41.0-71.0); PLATELET COUNT,PLT 261 K/uL (150-400); RED BLOOD CELL COUNT 5.13 M/uL (4.10-5.30)
[2023-12-11 17:16] LABS: APPEARANCE,URINE CLEAR; BILIRUBIN,URINE NEGATIVE (NEGATIVE); COLOR,URINE YELLOW; GLUCOSE,URINE NEGATIVE (NEGATIVE); KETONES,URINE NEGATIVE (NEGATIVE); LEUKOCYTE ESTERASE,URINE NEGATIVE (NEGATIVE); NITRITE,URINE NEGATIVE (NEGATIVE); OCCULT BLOOD,URINE TRACE-INTACT (NEGATIVE); PROTEIN,URINE NEGATIVE (NEGATIVE); UROBILINOGEN,URINE 0.2 EU/dL (<2.0)
[2023-12-11] MEDS: Sodium Chloride 0.9% 2.5 ML Syringe FLUSH PRN (17:16)
[2023-12-11] MEDS: Sodium Chloride 0.9% 10 ML Syringe FLUSH PRN (17:16)
[2023-12-11 17:22] LABS: A/G RATIO 0.9 (0.9-1.6); ALANINE AMINOTRANSFERASE,ALT 55 IU/L (14-63); ALBUMIN 3.5 g/dL (3.4-5.0); ALKALINE PHOSPHATASE 167 U/L (46-116); ASPARTATE AMNIOTRANSFERASE,AST 36 IU/L (15-37); BILIRUBIN TOTAL 0.2 mg/dL (0.2-1.0); BLOOD UREA NITROGEN,BUN 12 mg/dL (7.0-18.0); CALCIUM 8.5 mg/dL (8.5-10.1); CARBON DIOXIDE,CO2 26.1 mmol/L (21.0-32.0); CHLORIDE,CL 106 mmol/L (98-107); CREATININE 0.8 mg/dL (0.6-1.0); EST CRCL DRUG DOSING (CG) 93.64 mL/min; ESTIMATED GFR 105 mL/min (>60); GLUCOSE RANDOM 80 mg/dL (74-106); LIPASE 30 U/L (16-77); PROTEIN TOTAL,TP 7.2 g/dL (6.4-8.2); SODIUM,NA 142 mmol/L (136-145)
[2023-12-11 17:27] LABS: BACTERIA,URINE RARE (NEGATIVE); EPITHELIAL CELLS,URINE FEW (NONE-FEW); MUCUS,URINE LIGHT (NONE-MOD); RBC,URINE 0-2 (0-2/HPF); WBC,URINE 0-2 (0-5/HPF)
[2023-12-11] MEDS ORDERED: Iopamidol 755 MG/ML 500 ML Multipack Bottle IVPUSH STA (19:08)
[2023-12-11 20:39] VITALS: PULSE 66
[2023-12-11 21:43] VITALS: BP 143/81
== END 2023-12-11 21:43 | disposition home or self-care (01) ==
LOC: MW.ED 16:24
DX: O99.893 Other specified diseases and conditions complicating puerperium (principal); R10.13 Epigastric pain; R10.11 Right upper quadrant pain; Z88.1 Allergy status to other antibiotic agents; Z88.8 Allergy status to other drugs, medicaments and biological substances; Z79.899 Other long term (current) drug therapy
CPT/HCPCS: 36415; 71275; 74177; 80053; 81001; 83690; 84484; 84703; 85025; 85379; 96361; 96374; 96375; 96376; 99284; J1885; J2405; J3490; J7030